=== PATIENT | female | born 1990 | race Two or more races ===

== ENCOUNTER 2017-12-09 22:03 | Emergency (ER) | payer OTHER ==
[2017-12-09 22:15] VITALS: TEMP 98.3; BMI 31.4
[2017-12-09] MEDS ORDERED: SODIUM CHLORIDE 1,000 ML IV STA (22:20)
[2017-12-09] MEDS ORDERED: ACETAMINOPHEN 1000 MG/100 ML VIAL (NON FORMULARY) IVPB ONE (22:21)
--- NOTE | 2017-12-09 22:22 | PDOC ---
History of Present Illness - General History Source: Patient Exam Limitations: No Limitations - History of Present Illness Initial Comments: 12/09/17 22:23 The patient is a 27 year old female with no significant PMH who presents to the emergency department after a syncopal episode prior to arrival. The patient stated she was she walking when she started experiencing blurry, tunnel vision. The patient states she hit her face on a table before hitting her head on the ground. The patient's significant other was nearby and saw her when she was already on the ground. The patient's partner states the patient appeared stiff but denies general tonic clonic movement. The patient's partner states the patient lost consciousness for approximately 1 minutes. The patient states she returned to her normal state of health after the incident. No urinary or bowel incontinence. Patient is now complaining of a headache during presentation. The patient reports her last menstrual period was on November 03. The patient took a test one week ago, which was positive. The patient states she had another syncopal episode about 2 months ago after smelling strong odors at a nail salon. The patient denies any cardiac or neurological history. The patient is not on anticoagulants. The patient denies palpitations, chest pain, shortness of breath, headache and dizziness. Denies fever, chills, nausea, vomit, diarrhea and constipation. Denies vaginal pain, dysuria, frequency, urgency and hematuria. Allergies: NKA Past surgical history: None reported. Social history: No reported alcohol, drug, or cigarette use. <Radha Reeder - Last Filed: 12/09/17 22:55> <Baldemar Silver - Last Filed: 12/13/17 08:28> - General Chief Complaint: Syncope/Near Syncope Stated Complaint: SYNCOPAL EPISODE Time Seen by Provider: 12/09/17 22:19 Past History <Radha Reeder - Last Filed: 12/09/17 22:55> - Past Medical History COPD: No - Suicide/Smoking/Psychosocial Hx Smoking History: Never smoked <Baldemar Silver - Last Filed: 12/13/17 08:28> - Past Medical History Allergies/Adverse Reactions: Allergies Allergy/AdvReac Type Severity Reaction Status Date / Time No Known Allergies Allergy Verified 12/09/17 23:19 Home Medications: Ambulatory Orders Vit Calc,Iron,Folic [ Vitamins] 1 each PO DAILY #30 tablet Review of Systems - Review of Systems Able to Perform ROS?: Yes Comments:: 12/09/17 22:36 CONSTITUTIONAL: Absent: fever, no chills, no fatigue EYES: Absent: visual changes ENT: Absent: ear pain, no sore throat CARDIOVASCULAR: Absent: chest pain, no palpitations RESPIRATORY: Absent: cough, no SOB GI: Absent: abdominal pain, no nausea, no vomiting, no constipation, no diarrhea GENITOURINARY: Absent: dysuria, no frequency, no hematuria MUSKULOSKELETAL: Absent: back pain, no arthralgia, no myalgia SKIN: Absent: rash NEURO: Absent: Present: (+) Syncopal episode. (+) Headache. <Radha Reeder - Last Filed: 12/09/17 22:55> *Physical Exam - Vital Signs Last Vital Signs Temp Pulse Resp BP Pulse Ox 98.3 F 98 H 18 102/56 100 12/09/17 22:13 12/09/17 22:13 12/09/17 22:13 12/09/17 22:13 12/09/17 22:13 - Physical Exam Comments: 12/09/17 22:22 GENERAL: Patient is awake, alert and in no acute distress. Speech is clear and appropriate. HEAD: Atraumatic and nontender. HEENT: Pupils are equal round and reactive to light, extraocular movements are intact. The tympanic membranes are clear, no hemotympanum. No facial deformity. No facial bone tenderness or step-off. No nasal septal hematoma. The oropharynx is clear. NECK: The trachea is midline, there is no stridor. There is no midline cervical spine tenderness, full range of motion of neck. CHEST: Non-tender, no ecchymosis or abrasions. Equal chest wall expansion bilaterally. No flail segments. Lungs are clear to auscultation bilaterally. CARDIOVASCULAR: S1-S2, regular rate and rhythm. No murmurs or rubs. ABDOMEN: Soft, nontender, nondistended. Bowel sounds are normoactive. There is no abdominal or flank ecchymosis. BACK/PELVIS: There is no midline thoracic or lumbosacral spine tenderness or step-off. Pelvis is stable and nontender. EXTREMITIES: There is no extremity deformity or joint swelling. No focal bony tenderness throughout. 2+ distal pulses throughout. NEURO: Alert and oriented x3. Cranial nerves II through XII are intact. 5 out of 5 motor strength x4 extremities. No gross sensory deficits. [id number]-ebokft is intact. No pronator drift. Gait is stable. SKIN: No abrasions, hematomas, lacerations. PSYCH: Affect is appropriate <Radha Reeder - Last Filed: 12/09/17 22:55> - Vital Signs Last Vital Signs Temp Pulse Resp BP Pulse Ox 98.3 F 98 H 18 102/56 100 12/09/17 22:13 12/09/17 22:13 12/09/17 22:13 12/09/17 22:13 12/09/17 22:13 <Baldemar Silver - Last Filed: 12/13/17 08:28> Heart Score/ECG Review #1 ECG reviewed & interpreted by me at: 23:15 12/09/17 23:24 NSR 86, +LVH, no std/marily, TWI III, normal axis, normal intervals, no HOCM, no WPW, QTC 452 msec <Baldemar Silver - Last Filed: 12/13/17 08:28> ED Treatment Course - LABORATORY CBC & Chemistry Diagram: 12/09/17 23:08 12/09/17 23:08 - RADIOLOGY Radiology Studies Ordered: Category Date Time Status TRANSVAGINAL US PREG [US] Stat Ultrasound 12/09/17 22:20 Ordered <Baldemar Silver - Last Filed: 12/13/17 08:28> Medical Decision Making - Medical Decision Making 12/09/17 22:40 A portion of this note was documented by scribe services under my direction. I have reviewed the details of the note, within reason, and agree with the documentation with the following case summary and management plan written by me. Patient treated in the ED. Nursing notes are reviewed and incorporated into the medical decision-making. Vital signs reviewed. Peripheral IV access obtained by the nurse, laboratory studies are drawn and sent, reviewed and interpreted by myself. Vital Signs Temp Pulse Resp BP Pulse Ox 98.3 F 98 H 18 102/56 100 12/09/17 22:13 12/09/17 22:13 12/09/17 22:13 12/09/17 22:13 12/09/17 22:13 27-year-old female patient with no medical history presents with syncope. According to the patient, the patient was in her usual state health this morning. The patient was walking today and she started noticing she's been lightheaded and dizzy and felt this "closing" sensation. The patient subsequently syncopized and fell and hit her head. She does not take any of the quadrants. The patient was unconscious for approximately a minute. Patient's partner was near the patient and noted that she appeared stiff but did not notice a general tonic clonic movement. Patient currently came back to baseline. No urinary or bowel incontinence. Patient denies abdominal pain, chest pain, shortness of breath or palpitations. The patient does have a history of prior syncope. Last episode was several months ago in the setting of a strong smell likely vasovagal syncope. No family history of sudden . The patient states that she is recently with her last menstrual period approximate 5 weeks ago. I suspect that this episode was likely vasovagal syncope. However, given the , we'll need to obtain a transvaginal ultrasound to rule out ectopic . Obtain beta hCG. She denies any vaginal bleeding at this time. Labs including troponin. Including EKG. Observation and reassess. Will defer on head and facial CT as patient is low risk for intracranial hemorrhage. She has no nausea, vomiting, lethargy, neurological symptoms and does not take anticoagulants. The patient is also , and the risk of radiation is likely to be higher than the risk of finding an abnormal finding on CT. This was discussed with patient who also agrees. 12/10/17 02:16 CBC, BMP 12/09/17 23:08 12/09/17 23:08 CMP Sodium 138 mmol/L (136-145) 12/09/17 23:08 Potassium 3.7 mmol/L (3.5-5.1) 12/09/17 23:08 Chloride 106 mmol/L (98-107) 12/09/17 23:08 Carbon Dioxide 23 mmol/L (21-32) 12/09/17 23:08 Anion Gap 9 (8-16) 12/09/17 23:08 BUN 17 mg/dL (7-18) 12/09/17 23:08 Creatinine 0.8 mg/dL (0.55-1.02) 12/09/17 23:08 Creat Clearance w eGFR > 60 (>60) 12/09/17 23:08 Random Glucose 111 mg/dL (74-106) H 12/09/17 23:08 Calcium 9.1 mg/dL (8.5-10.1) 12/09/17 23:08 Total Bilirubin 0.9 mg/dL (0.2-1.0) 12/09/17 23:08 AST 12 U/L (15-37) L 12/09/17 23:08 ALT 19 U/L (12-78) 12/09/17 23:08 Alkaline Phosphatase 48 U/L (45-117) 12/09/17 23:08 Creatine Kinase 90 IU/L (26-192) 12/09/17 23: Troponin I < 0.02 ng/ml (0.00-0.05) 12/09/17 23:08 Total Protein 8.0 g/dl (6.4-8.2) 12/09/17 23: Albumin 4.2 g/dl (3.4-5.0) 12/09/17 23: Beta HCG, Quant 4827.4 mIU/ml 12/09/17 23:08 Urine Test Results Urine Color Yellow 12/09/17 22:35 Urine Appearance Clear 12/09/17 22:35 Urine pH 5.0 (5.0-8.0) 12/09/17 22:35 Ur Specific Downs 1.032 (1.001-1.035) 12/09/17 22:35 Urine Protein Negative (NEGATIVE) 12/09/17 22:35 Urine Glucose (UA) Negative (NEGATIVE) 12/09/17 22:35 Urine Ketones Trace (NEGATIVE) H 12/09/17 22:35 Urine Blood Negative (NEGATIVE) 12/09/17 22:35 Urine Nitrite Negative (NEGATIVE) 12/09/17 22:35 Urine Bilirubin Negative (<2.0 mg/dL) 12/09/17 22:35 Ur Leukocyte Esterase Negative (NEGATIVE) 12/09/17 22:35 Ultrasound shows: No ovarian torsion. Small intrauterine possible gestational sac 5 weeks 2 days without discrete yolk sac or pole. Could represent early gestation but advise correlation with serial quantitative beta-hCG and follow up ultrasound. 12/10/17 02:28 I advised the patient to follow up in 2 days for the repeat ultrasound in order to fully rule out ectopic . Patient verbalizes understanding and agrees with plan. Advised her against alcohol and NSAIDS given . I also informed her of her anemia. Copy of results given to patient and she will bring it to her doctor. Will discharge with vitamins. I discussed the physical exam findings, ancillary test results and final diagnoses with the patient. I answered all of the patient's questions. The patient was satisfied with the care received and felt comfortable with the discharge plan and treatment plan. The patient will call their primary care physician within 24 hours to arrange follow-up and will return to the Emergency Department with any new, persistant or worsening symptoms. <Baldemar Silver - Last Filed: 12/13/17 08:28> *DC/Admit/Observation/Transfer - Attestations Scribe Attestion: 12/09/17 22:37 Documentation prepared by Radha Reeder, acting as medical record consultant for Baldemar Silver MD. <Radha Reeder - Last Filed: 12/09/17 22:55> - Discharge Dispostion Decision to Admit order: No <Baldemar Silver - Last Filed: 12/13/17 08:28> Diagnosis at time of Disposition: Vasovagal syncope Qualifiers: Weeks of gestation: less than 8 weeks Qualified Code(s): Z3A.01 - Less than 8 weeks gestation of - Discharge Dispostion Disposition: HOME Condition at time of disposition: Stable - Prescriptions Prescriptions: Vit Calc,Iron,Folic [ Vitamins] 1 each PO DAILY #30 tablet - Referrals Referrals: Anne Saha MD [Staff Physician] - Ludin Franks MD [Staff Physician] - - Patient Instructions Printed Discharge Instructions: DI for Syncope in Adults (Fainting) Additional Instructions: Your workup was performed here in the ER. Please return to the ER in 2 days to have your blood work repeated (beta HCG) and ultrasound of your fetus repeated in order to fully rule out ectopic . Please make an appointment with an [employer] doctor as well. Drink plenty of fluids and rest. If you have any severe abdominal pain, vaginal bleeding, please return to the ER for further evaluation.
[2017-12-09] MEDS ORDERED: ACETAMINOPHEN INJECTION 100 ML IVPB ONE (22:46)
[2017-12-09 22:53] LABS: URINE APPEARANCE CLEAR; URINE BILIRUBIN NEGATIVE (<2.0 mg/dL); URINE COLOR YELLOW; URINE GLUCOSE (UA) NEGATIVE (NEGATIVE); URINE KETONE TRACE (NEGATIVE); URINE LEUK ESTERASE NEGATIVE (NEGATIVE); URINE NITRITE NEGATIVE (NEGATIVE); URINE PROTEIN NEGATIVE (NEGATIVE); URINE UROBILINOGEN NEGATIVE mg/dL (0.2-1.0)
[2017-12-09 23:14] LABS: BASO % 0.8 % (0-2.0); EOS % 0.8 % (0-4.5); HEMATOCRIT 29.8 % (32.4-45.2); HEMOGLOBIN 9.1 GM/dL (10.7-15.3); LYMPH % 13.8 % (8-40); MCHC 30.7 g/dl (32.0-36.0); MEAN PLT VOLUME 8.1 fl (7.5-11.1); MONO % 3.7 % (3.8-10.2); NEUT % 80.9 % (42.8-82.8); PLATELET COUNT 379 K/MM3 (134-434); RBC 4.81 M/mm3 (3.60-5.2); RDW 18.6 % (11.6-15.6); WHITE BLOOD COUNT 9.5 K/mm3 (4.0-10.0)
[2017-12-09 23:16] LABS: ADD RBC MORPHOLOGY YES
[2017-12-09 23:41] LABS: ALBUMIN 4.2 g/dl (3.4-5.0); ANION GAP 9 (8-16); BLOOD UREA NITROGEN 17 mg/dL (7-18); CALCIUM 9.1 mg/dL (8.5-10.1); CHLORIDE 106 mmol/L (98-107); CO2 23 mmol/L (21-32); CREATININE 0.8 mg/dL (0.55-1.02); GLUCOSE,RANDOM 111 mg/dL (74-106); POTASSIUM 3.7 mmol/L (3.5-5.1); SGOT/AST 12 U/L (15-37); SODIUM 138 mmol/L (136-145)
[2017-12-09 23:46] LABS: ALK PHOS 48 U/L (45-117); BILIRUBIN,TOTAL 0.9 mg/dL (0.2-1.0); SGPT/ALT 19 U/L (12-78)
[2017-12-09 23:48] LABS: ANISOCYTOSIS 1+; OVALOCYTE 1+; PLATELET ESTIMATE ADEQUATE
[2017-12-10 03:05] VITALS: BP 113/74; PULSE 82
--- NOTE | 2017-12-10 08:40 | EKG ---
Test Reason : Blood Pressure : / mmHG Vent. Rate : 086 BPM Atrial Rate : 086 BPM P-R Int : 138 ms QRS Dur : 088 ms QT Int : 378 ms P-R-T Axes : 062 010 020 degrees QTc Int : 452 ms NORMAL SINUS RHYTHM MINIMAL VOLTAGE CRITERIA FOR LVH, MAY BE NORMAL VARIANT RSR' OR QR PATTERN IN V1 SUGGESTS RIGHT VENTRICULAR CONDUCTION DELAY BORDERLINE ECG NO PREVIOUS ECGS AVAILABLE Confirmed by ALMA FLORENCE, NAYE ([id number]) on 12/10/2017 8:39:59 AM Referred By: Confirmed By:NAYE MARQUEZ MD
== END 2017-12-10 03:04 | disposition home or self-care (01) ==
LOC: JER 22:03
PROC: 3E033NZ Introduction of Analgesics, Hypnotics, Sedatives into Peripheral Vein, Percutaneous Approach (ICD-10-PCS; principal; 2017-12-09)
DX: O26.892 Other specified pregnancy related conditions, second trimester (principal); R55 Syncope and collapse; Z3A.01 Less than 8 weeks gestation of pregnancy; W18.39XA Other fall on same level, initial encounter; Y93.89 Activity, other specified; Y92.018 Other place in single-family (private) house as the place of occurrence of the external cause; Y99.8 Other external cause status
CPT/HCPCS: 36415; 76817-TC; 80053; 81003; 82550; 84484; 84702; 85025; 86850; 86900; 86901; 87086; 93005; 93010; 96374; 99283-25; J0131; J7030